=== PATIENT | male | born 1975 | race Caucasian/White ===

== ENCOUNTER 2021-10-27 01:30 | Emergency (ER) | payer MEDICAID ==
[~2021-10-27] VITALS: Ht 188 cm; Wt 86.2 kg
[2021-10-27] MEDS ORDERED: CLIN300C8 PO (04:06)
[2021-10-27] MEDS ORDERED: IBUP800T27 PO (04:06)
[2021-10-27 04:38] VITALS: BP 136/89
== END 2021-10-27 04:54 | disposition home or self-care (01) ==
LOC: ER 01:35
DX: K04.7 Periapical abscess without sinus (principal)